=== PATIENT | male | born 1950 | race Caucasian/White ===

== ENCOUNTER 2022-05-11 10:07 | Outpatient (CLI) | payer OTHER, SELFPAY ==
--- NOTE | ~2022-05-11 | XR_ITS ---
EXAM: XR shoulder LT min 2V DATE: 05/11/2022 10:59 HISTORY: CHRONIC PAIN DAVID SHOULDERS. NKI HX GOUT . COMPARISON: 07/19/2016. FINDINGS: Decreased mineralization. No fracture or dislocation. No lytic or blastic lesion. Moderate AC joint hypertrophy. Osseous outlet compromise. Moderate glenohumeral arthritis. Rotator cuff patho logy. No erosion or periosteal change. Soft tissues within normal limits. IMPRESSION: No acute osseous finding. Degenerative/arthritic change described above. Reviewed, dictated and finalized at location K. IMPRESSION: No acute osseous finding. Degenerative/arthritic change described a arnulfo.
--- NOTE | ~2022-05-11 | US_ITS ---
EXAMINATION: US soft tissue abdomen DATE: 05/11/2022 11:56 INDICATION: Ventral hernia without obstruction or gangrene. TECHNIQUE: Multiple grayscale and Doppler ultrasound images of the abdomen were obtained. COMPARISON: None FINDINGS: There is no abnormal mass or hernia in the patient's area of concern in the supraumbilical region. IMPRESSION: 1. No abnormal mass or hernia in the patient's area of concern in the supraumbilical region. Reviewed, dictated and finalized at location A. IMPRESSION: 1. No abnormal mass or hernia in the patient's area of concern in the supraumbi lical region.
--- NOTE | ~2022-05-11 | XR_ITS ---
EXAMINATION: XR shoulder RT min 2V DATE: 05/11/2022 10:58 INDICATION: Right shoulder pain. TECHNIQUE: 4 views of right shoulder were obtained. COMPARISON: Right shoulder radiographs 07/19/2016, right humerus radiographs 04/22/2013 FINDINGS: Partially visualized is an old healed fracture of right humeral diaphysis. No acute fractur e. There is severe osteoarthritis of glenohumeral joint and acromioclavicular joint. There are loose bodies in glenohumeral joint. IMPRESSION: 1. Severe polyarticular osteoarthritis. 2. Loose bodies in glenohumeral joint. Reviewed, dictated and finalized at location A.
--- NOTE | ~2022-05-11 | XR_ITS ---
EXAMINATION: XR knee LT 3V DATE: 05/11/2022 10:59 INDICATION: Left knee pain. TECHNIQUE: 3 views of left knee were obtained. COMPARISON: None. FINDINGS: There is varus angulation at the knee. No fracture. There is severe osteoarthritis of media l and patellofemoral compartments and moderate osteoarthritis of lateral compartment. There are multi ple loose bodies in the knee joint including bulky loose bodies in the suprapatellar bursa. No signif icant joint effusion. IMPRESSION: 1. Severe left knee osteoarthritis with loose bodies. Reviewed, dictated and finalized at location A.
--- NOTE | ~2022-05-11 | XR_ITS ---
EXAMINATION: XR knee RT 3V DATE: 05/11/2022 10:59 INDICATION: Right knee pain. TECHNIQUE: 3 views of right knee were obtained. COMPARISON: None. FINDINGS: Bone alignment is normal. No fracture. There is moderate osteoarthritis of patellofemoral c ompartment and mild osteoarthritis of medial and lateral compartments. No knee joint effusion. IMPRESSION: 1. Moderate right knee osteoarthritis. Reviewed, dictated and finalized at location A.
== END 2022-05-11 10:08 | disposition home or self-care (01) ==
PROVIDERS: PCP Emergency Medicine; Visit Provider Physician Assistant
DX: K43.9 Ventral hernia without obstruction or gangrene (principal); M62.08 Separation of muscle (nontraumatic), other site; M17.0 Bilateral primary osteoarthritis of knee; M23.42 Loose body in knee, left knee; M19.011 Primary osteoarthritis, right shoulder
CPT/HCPCS: 73030; 73562; 76705